=== PATIENT | female | born 1960 | race Caucasian/White ===

== ENCOUNTER → 2022-02-24 | Outpatient (CLI) | payer OTHER ==
[2022-02-24 14:45] LABS: BUN/CREATININE RATIO 18 (0-10)
== END ==
LOC: ECHO 13:15
PROVIDERS: Internal Medicine Cardiovascular Disease
DX: I48.91 Unspecified atrial fibrillation (principal); R00.2 Palpitations; Q21.1 Atrial septal defect; I08.1 Rheumatic disorders of both mitral and tricuspid valves
CPT/HCPCS: ECHO; 36415; 80048; 83735; 93306

== ENCOUNTER 2022-06-22 21:05 | Observation (INO) | payer OTHER ==
[~2022-06-22] VITALS: Ht 167.6 cm; Wt 99.8 kg
[2022-06-22 22:10] LABS: HEMOGLOBIN 13.5 gm/dl (12.3-15.3); RED BLOOD COUNT 4.46 M/UL (4.00-5.10); WHITE BLOOD COUNT 9.4 K/UL (4.5-11.0)
[2022-06-22 22:33] LABS: BUN/CREATININE RATIO 17 (0-10)
[2022-06-23] MEDS ORDERED: ELIQUIS5 MG PO (10:24)
[2022-06-23] MEDS ORDERED: PANTOPRAZOLE SO20 MG PO (10:30)
[2022-06-23] MEDS ORDERED: METOPROLOL TART50 MG PO (10:33)
[2022-06-23] MEDS ORDERED: DOXEPIN HCL50 MG PO (10:34)
[2022-06-23] MEDS ORDERED: CRESTOR10 MG PO (10:34)
[2022-06-23] MEDS ORDERED: LOPRESSOR 25 MG25 MG PO (20:03)
[2022-06-23] MEDS ORDERED: RANEXA500 MG PO (20:03)
[2022-06-23] MEDS ORDERED: ASPIRIN EC81 MG PO (20:03)
[2022-06-23] MEDS ORDERED: MULTAQ 400 MG400 MG PO (20:03)
== END 2022-06-23 23:50 | disposition home or self-care (01) ==
LOC: ER1 21:05 → MED SURG 4 06-23 00:16 → ER1 06-23 01:18 → MED SURG 4 06-23 23:50
PROVIDERS: Physician Assistant; ADMIT Internal Medicine
DX: R07.89 Other chest pain (principal); R55 Syncope and collapse; I48.0 Paroxysmal atrial fibrillation; E78.5 Hyperlipidemia, unspecified; Z79.01 Long term (current) use of anticoagulants; Z86.73 Personal history of transient ischemic attack (TIA), and cerebral infarction without residual deficits; Z88.5 Allergy status to narcotic agent
CPT/HCPCS: 36415; 70450; 71045; 73030; 78452; 80053; 80061; 81001; 82550; 82553; 84439; 84443; 84484; 85025; 85379; 93005; 93017; 93270; 96361; 96374; 99285; A9502; G0378; J2405; J2785; Q9967